=== PATIENT | female | born 1960 | race Caucasian/White ===

== ENCOUNTER 2021-08-05 21:23 | Inpatient (IN) | payer OTHER ==
[~2021-08-05] VITALS: Ht 157.5 cm; Wt 68.0 kg
[2021-08-05] MEDS ORDERED: CEFEPIME HCL 1 GM VIAL ONE (21:49)
[2021-08-05] MEDS ORDERED: Vancomycin IV 1 GM VIAL ONE (21:49)
[2021-08-05] MEDS ORDERED: SODIUM CHLORIDE 0.9% 250ML 250 ML ONE (21:49)
[2021-08-05] MEDS ORDERED: SODIUM CHLORIDE 0.9% 50ML 50 ML ONE (21:49)
[2021-08-05] MEDS ORDERED: SODIUM CHLORIDE 0.9% 1000ML 1,000 ML ONE (21:50)
[2021-08-05] MEDS: SODIUM CHLORIDE 0.9% 1000ML 1,000 ML IV SCH ×4 (22:00→23:45)
[2021-08-05 22:08] LABS: BASOPHILS # (AUTO) 0.1 (0.0-0.1); BASOPHILS % 0.6 % (0.0-1.0); EOSINOPHILS # (AUTO) 0.1 (0.0-0.4); EOSINOPHILS % 0.7 % (0.0-6.0); HEMATOCRIT 41.9 % (34.2-44.1); HEMOGLOBIN 13.6 g/dL (12.0-16.0); LYMPHOCYTES # (AUTO) 1.8 (1.0-3.2); LYMPHOCYTES % 13.5 % (18.0-39.1); MEAN CORPUSCULAR HEMOGLOBIN 28.8 pg (28-32); MEAN CORPUSCULAR HGB CONC 32.5 g/dL (31-35); MEAN CORPUSCULAR VOLUME 88.6 fL (81-99); MONOCYTES # (AUTO) 0.8 (0.2-0.8); MONOCYTES % 5.8 % (4.4-11.3); NEUTROPHILS # (AUTO) 10.7 (2.1-6.9); NEUTROPHILS % 78.9 % (38.7-80.0); PLATELET COUNT 349 x10e3/uL (140-360); RED BLOOD COUNT 4.73 x10e6/uL (3.6-5.1); RED CELL DISTRIBUTION WIDTH 13.8 % (11.7-14.4)
[2021-08-05 22:22] LABS: CREATINE KINASE 39 IU/L (29-168)
[2021-08-05 22:23] LABS: ANION GAP 16.2 mmol/L (8-16); CREATININE, SERUM 0.71 mg/dL (0.57-1.11); POTASSIUM 4.2 mmol/L (3.5-5.1)
[2021-08-05] MEDS ORDERED: Vancomycin IV 1 GM in SODIUM CHLORIDE 0.9% 250ML 250 ML IV ONE (22:30)
[2021-08-05] MEDS ORDERED: CEFEPIME 1 GM in SODIUM CHLORIDE 0.9% 50ML 50 ML IV ONE (22:30)
[2021-08-05 22:42] LABS: CLARITY,URINE CLEAR (CLEAR); COLOR,URINE YELLOW (YELLOW); KETONES,URINE NEGATIVE (NEGATIVE); LEUKOCYTE ESTERASE ,URINE TRACE (NEGATIVE); NITRITE,URINE NEGATIVE (NEGATIVE); PROTEIN,URINE DIPSTICK NEGATIVE (NEGATIVE); URINE UROBILINOGEN 0.2 mg/dL (0.2 - 1)
[2021-08-05 22:45] LABS: BACTERIA,URINE FEW /HPF; EPITHELIAL CELLS,URINE MODERATE /LPF; RBC,URINE 0-5 /HPF (0-5)
[2021-08-05 22:47] LABS: ALBUMIN 3.9 g/dL (3.5-5.0); ALBUMIN/GLOBULIN RATIO 1.3 (0.8-2.0)
[2021-08-05] MEDS ORDERED: ONDANSETRON HCL INJ 2MG/ML 2ML 2 MG/ML VIAL IV PRN (23:15)
[2021-08-05] MEDS: Vancomycin IV 1 GM in SODIUM CHLORIDE 0.9% 250ML 250 ML IV SCH (23:27)
[2021-08-06] MEDS: CEFEPIME 1 GM in SODIUM CHLORIDE 0.9% 50ML 50 ML IV SCH ×2 (06:00→06:46)
[2021-08-06 07:05] LABS: ALBUMIN 3.4 g/dL (3.5-5.0); ALBUMIN/GLOBULIN RATIO 1.3 (0.8-2.0); ANION GAP 12.8 mmol/L (8-16); CREATININE, SERUM 0.58 mg/dL (0.57-1.11); POTASSIUM 3.8 mmol/L (3.5-5.1)
[2021-08-06] MEDS: ACETAMINOPHEN 325 MG TAB PO PRN ×2 (07:47→15:59)
[2021-08-06] MEDS: SODIUM CHLORIDE 0.9% 1000ML 1,000 ML IV SCH (08:32)
[2021-08-06 08:37] LABS: BASOPHILS # (AUTO) 0.1 (0.0-0.1); BASOPHILS % 0.6 % (0.0-1.0); EOSINOPHILS # (AUTO) 0.1 (0.0-0.4); EOSINOPHILS % 0.9 % (0.0-6.0); HEMATOCRIT 41.2 % (34.2-44.1); HEMOGLOBIN 13.3 g/dL (12.0-16.0); LYMPHOCYTES # (AUTO) 1.1 (1.0-3.2); LYMPHOCYTES % 12.8 % (18.0-39.1); MEAN CORPUSCULAR HEMOGLOBIN 28.5 pg (28-32); MEAN CORPUSCULAR HGB CONC 32.3 g/dL (31-35); MEAN CORPUSCULAR VOLUME 88.2 fL (81-99); MONOCYTES # (AUTO) 0.7 (0.2-0.8); MONOCYTES % 8.1 % (4.4-11.3); NEUTROPHILS # (AUTO) 6.7 (2.1-6.9); NEUTROPHILS % 77.4 % (38.7-80.0); PLATELET COUNT 314 x10e3/uL (140-360); RED BLOOD COUNT 4.67 x10e6/uL (3.6-5.1); RED CELL DISTRIBUTION WIDTH 13.8 % (11.7-14.4)
[2021-08-06] MEDS: ENOXAPARIN SOD INJ 40 MG/0.4 ML SYR SC SCH (10:59)
[2021-08-06] MEDS: PIPERACILLIN/TAZOBACTAM 3.375 GM in SODIUM CHLORIDE 0.9% 50ML 50 ML IV SCH ×3 (13:14→23:10)
[2021-08-06] MEDS ORDERED: ARMOUR THYROID60 MG PO (13:24)
[2021-08-06] MEDS ORDERED: MOBIC15 MG PO (13:24)
[2021-08-06 14:42] VITALS: BP 135/80
[2021-08-06 15:39] VITALS: BP 141/80
[2021-08-06] MEDS ORDERED: LEVOTHYROXINE50 MCG PO (20:18)
[2021-08-06 21:09] VITALS: BP 120/79
[2021-08-06 21:10] VITALS: BP 120/79
[2021-08-06] MEDS ORDERED: SODIUM CHLORIDE 0.9% 250ML 250 ML ONE (23:10)
[2021-08-06] MEDS: Vancomycin IV 1 GM in SODIUM CHLORIDE 0.9% 250ML 250 ML IV SCH (23:45)
[2021-08-07] VITALS (8 sets, daily range): BP systolic 96–143; BP diastolic 67–85
[2021-08-07] MEDS ORDERED: THYROID 60 MG TAB PO SCH (06:00)
[2021-08-07] MEDS: PIPERACILLIN/TAZOBACTAM 3.375 GM in SODIUM CHLORIDE 0.9% 50ML 50 ML IV SCH ×4 (06:10→23:36)
[2021-08-07] MEDS ORDERED: MELOXICAM 7.5 MG TAB PO SCH (07:30)
[2021-08-07] MEDS: MELOXICAM 7.5 MG TAB PO SCH (07:40)
[2021-08-07] MEDS: LEVOTHYROXINE SODIUM 50 MCG TAB PO SCH (07:40)
[2021-08-07] MEDS: ENOXAPARIN SOD INJ 40 MG/0.4 ML SYR SC SCH (08:53)
[2021-08-07] MEDS: ACETAMINOPHEN 325 MG TAB PO PRN (13:10)
[2021-08-08 05:01] LABS: BASOPHILS # (AUTO) 0.1 (0.0-0.1); BASOPHILS % 1.7 % (0.0-1.0); EOSINOPHILS # (AUTO) 0.2 (0.0-0.4); EOSINOPHILS % 3.7 % (0.0-6.0); HEMATOCRIT 39.9 % (34.2-44.1); LYMPHOCYTES # (AUTO) 1.8 (1.0-3.2); LYMPHOCYTES % 36.5 % (18.0-39.1); MEAN CORPUSCULAR HEMOGLOBIN 28.9 pg (28-32); MEAN CORPUSCULAR HGB CONC 32.6 g/dL (31-35); MEAN CORPUSCULAR VOLUME 88.7 fL (81-99); MONOCYTES # (AUTO) 0.5 (0.2-0.8); MONOCYTES % 11.2 % (4.4-11.3); NEUTROPHILS # (AUTO) 2.3 (2.1-6.9); NEUTROPHILS % 46.7 % (38.7-80.0); PLATELET COUNT 226 x10e3/uL (140-360); RED CELL DISTRIBUTION WIDTH 13.8 % (11.7-14.4)
[2021-08-08] MEDS: PIPERACILLIN/TAZOBACTAM 3.375 GM in SODIUM CHLORIDE 0.9% 50ML 50 ML IV SCH ×2 (05:09→12:22)
[2021-08-08 05:35] VITALS: BP 114/67
[2021-08-08 05:37] LABS: CALCIUM 9.2 mg/dL (8.4-10.2); CREATININE, SERUM 0.66 mg/dL (0.57-1.11)
[2021-08-08 08:20] VITALS: BP 112/83
[2021-08-08 08:41] VITALS: BP 112/83
[2021-08-08] MEDS: LEVOTHYROXINE SODIUM 50 MCG TAB PO SCH (09:32)
[2021-08-08] MEDS: MELOXICAM 7.5 MG TAB PO SCH (09:32)
[2021-08-08] MEDS: ENOXAPARIN SOD INJ 40 MG/0.4 ML SYR SC SCH (09:32)
[2021-08-08] MEDS: ACETAMINOPHEN 325 MG TAB PO PRN (09:44)
[2021-08-08] MEDS ORDERED: AUGMENTIN 875-1 EACH PO (11:21)
[2021-08-08 11:32] VITALS: BP 128/79
== END 2021-08-08 14:32 | disposition home or self-care (01) | DRG 872 ==
LOC: ER 21:36 → ERHOLD 23:14 → MED/SURG2 08-06 12:12
PROVIDERS: ADMIT Internal Medicine; ATTEND Internal Medicine
DX: A41.9 Sepsis, unspecified organism (principal); N39.0 Urinary tract infection, site not specified; N61.0 Mastitis without abscess; E06.3 Autoimmune thyroiditis; M79.7 Fibromyalgia; E03.9 Hypothyroidism, unspecified; M35.00 Sjogren syndrome, unspecified; Z90.13 Acquired absence of bilateral breasts and nipples; Z20.822 Contact with and (suspected) exposure to COVID-19
CPT/HCPCS: 36415; 71045; 80048; 80053; 80202; 81001; 82550; 82553; 83605; 84484; 85025; 87040; 93005; 99284; J0692; J1650; J2543; J3370; J7030; J7050; U0002